=== PATIENT | male | born 1945 | race Caucasian/White ===

== ENCOUNTER 2021-08-02 12:36 | Outpatient (CLI) | payer MEDICARE, BC | END 2021-08-02 23:59 | disposition home or self-care (01) | LOC: LAB.N 12:36 | PROVIDERS: ATTEND Family Medicine | DX: R05 Cough (principal); Z20.822 Contact with and (suspected) exposure to COVID-19 ==

== ENCOUNTER 2022-10-04 22:03 | Emergency (ER) | payer MEDICARE, BC ==
--- NOTE | 2022-10-05 01:59 | ED Physician Documentation ---
History of Present Illness - Stated complaint Stated Complaint: SOA,FEVER - Chief complaint Chief Complaint: Resp - History obtained from History obtained from: Patient - History of Present Illness Timing: How many weeks ago (1) Pain level now: 0 Improved by: no ameliorating factors Worsened by: no exacerbating factors - Additonal information Additional information: c/o one week of rhinorrhea, post-nasal drip, nonproductive cough, sore throat, dyspnea, wheezing. Denies headache, denies fever at home (he is febrile in ED triage), denies myalgias. He has COPD but does not use oxygen at home. He has MDI but not nebulizer. Review of Systems Constitutional: reports: Fever (in ED at triage but was not aware of fevers at home), Myalgias, Fatigue. denies: Chills, Sweats Throat: reports: Sore throat Cardiac: reports: Reviewed and negative Respiratory: reports: Dyspnea, Cough, Wheezing GI: reports: Reviewed and negative : denies: Dysuria, Frequency PD PAST MEDICAL HISTORY - Past Medical History Cardiovascular: Hypertension, High cholesterol, Atrial fibrillation - Past Surgical History Past Surgical History: Yes Ortho: Shoulder arthroplasty - Present Medications Home Medications: Ambulatory Orders Medication Instructions Recorded Confirmed Aspirin 325 mg ORAL DAILY 05/21/16 05/21/16 Latanoprost 0.005% Ophth Drops 1 drop OP DAILY 05/21/16 05/21/16 [Xalatan Ophth Drops] Losartan [Cozaar] 100 mg ORAL DAILY 05/21/16 05/21/16 Potassium Chloride 20 meq ORAL BID 05/21/16 05/21/16 Simvastatin 20 mg ORAL DAILY 05/21/16 05/21/16 atenoloL [Atenolol] 100 mg ORAL DAILY 05/21/16 05/21/16 cephALEXin [Keflex] 500 mg PO Q6H #28 capsule 05/21/16 hydroCHLOROthiazide 25 mg ORAL DAILY 05/21/16 05/21/16 [Hydrochlorothiazide] Albuterol 2.5 mg INH Q4H PRN #30 ml 10/05/22 Nebulizer and Compressor 1 each MC Q4HR PRN #1 each 10/05/22 [Compressor Nebulizer System] predniSONE [Deltasone] 40 mg PO DAILY 4 Days #8 tablet 10/05/22 - Allergies Allergies/Adverse Reactions: Allergies Allergy/AdvReac Type Severity Reaction Status Date / Time ceftriaxone Allergy Severe Hives Verified 10/04/22 22:42 rifampin Allergy Severe Hives Verified 10/04/22 22:42 - Social History Does the pt smoke?: No Smoking Status: Never smoker Does the pt drink ETOH?: Yes Does the pt have substance abuse?: No - Immunizations Immunizations are current?: Yes PD ED PE NORMAL - Vitals Vital signs reviewed: Yes - General General: Alert and oriented X 3, No acute distress, Well developed/nourished - HEENT HEENT: Pharynx benign - Neck Neck: Supple, no meningeal sign - Cardiac Cardiac: RRR, No murmur - Respiratory Respiratory: No respiratory distress - Abdomen Abdomen: Soft, Non tender PD ED PE EXPANDED - Respiratory Respiratory: Wheezing (bilateral expiratory wheezing), Decreased breath sounds Results - Vitals Vitals: Oxygen O2 Source Room air - Labs Labs: Laboratory Tests 10/05/22 01:58 Nasal Adenovirus (PCR) NOT DETECTED Nasal B. parapertussis DNA (PCR) NOT DETECTED Nasal Coronavir 229E PCR NOT DETECTED Nasal Coronavir HKU1 PCR NOT DETECTED Nasal Coronavir NL63 PCR NOT DETECTED Nasal Coronavir OC43 PCR NOT DETECTED Nasal Enterovir/Rhinovir PCR NOT DETECTED Nasal Influenza B PCR NOT DETECTED Nasal Influenza A PCR NOT DETECTED Nasal Parainfluen 1 PCR NOT DETECTED Nasal Parainfluen 2 PCR NOT DETECTED Nasal Parainfluen 3 PCR NOT DETECTED Nasal Parainfluen 4 PCR NOT DETECTED Nasal RSV (PCR) DETECTED A Nasal B.pertussis DNA PCR NOT DETECTED Nasal C.pneumoniae (PCR) NOT DETECTED Kiran Human Metapneumo PCR NOT DETECTED Nasal M.pneumoniae (PCR) NOT DETECTED Nasal SARS-CoV-2 (PCR) NOT DETECTED - Rads (name of study) chest xray Radiology: Prelim report reviewed, See rad report PD MEDICAL DECISION MAKING - ED course Complexity details: reviewed results, re-evaluated patient, considered differential, d/w patient ED course: no concerning findings on CXR. He is given acetaminophen for 38.1 temperature (subsequently defervesces), and prednisone and duoneb for URI and COPD exacerbation symptoms. He reports feeling much better after the duoneb, and reexam of lungs reveals good air movement, end-expiratory wheezing bilaterally. Respiratory PCR panel is positive for RSV, negative for other viruses tested (such as COVID and influenza). Results d/w patient, return precautions reviewed. He is prescribed four more days of QD prednisone as well as rx for nebulizer with albuterol for neb Departure - Departure Disposition: 01 Home, Self Care Clinical Impression: RSV bronchitis, COPD exacerbation Condition: Good Instructions: ED RSV Bronchiolitis, ED Upper Resp Infec No Abx Tx, ED COPD Flare Follow-Up: GIA JACOBSEN MD [Primary Care Provider] - Prescriptions: Nebulizer and Compressor [Compressor Nebulizer System] 1 each MC Q4HR PRN #1 each PRN Reason: Dyspnea Albuterol 2.5 mg INH Q4H PRN #30 ml PRN Reason: Wheezing predniSONE [Deltasone] 40 mg PO DAILY 4 Days #8 tablet Comments: Your nasal swab tested positive for RSV, negative for the other viruses tested (including influenza, COVID). RSV is a common virus during cold/flu season, typically affects young children and infants. Most adults who catch RSV have mild cough/cold symptoms, although with your COPD you might have more pronounced symptoms than typical for most adults. There is no targeted treatment for RSV (such as an antibiotic or anti-viral medication). Prescriptions for prednisone (steroid) and a nebulizer with albuterol have been electronically submitted to [facility] pharmacy in [place] Discharge Date/Time: 10/05/22 05:04
[2022-10-05] MEDS ORDERED: predniSONE 20 MG TABLET PO STA (02:18)
[2022-10-05] MEDS ORDERED: IPRATROPIUM/ALBUTEROL 3 ML NEB INH STA (02:18)
[2022-10-05] MEDS ORDERED: ACETAMINOPHEN 325 MG TABLET PO STA (02:19)
[2022-10-05 02:56] LABS: B. PARAPERTUSSIS- RESP PCR PAN NOT DETECTED; B. PERTUSSIS- RESP PCR PANEL NOT DETECTED; C. PNEUMONIAE- RESP PCR PANEL NOT DETECTED; CORONAVIRUS 229E-RESP PCR NOT DETECTED; CORONAVIRUS HKU1-RESP PCR NOT DETECTED; CORONAVIRUS NL63-RESP PCR NOT DETECTED; CORONAVIRUS OC43-RESP PCR NOT DETECTED; HUMAN METAPNEUMOVIRUS NOT DETECTED; INFLUENZA A- RESP PCR PANEL NOT DETECTED; INFLUENZA B - RESP PCR PANEL NOT DETECTED; M. PNEUMONIAE- RESP PCR PANEL NOT DETECTED; PARAINFLUENZA VIRUS 1 NOT DETECTED; PARAINFLUENZA VIRUS 2 NOT DETECTED; PARAINFLUENZA VIRUS 3 NOT DETECTED; PARAINFLUENZA VIRUS 4 NOT DETECTED; RHINOVIRUS/ENTEROVIRUS NOT DETECTED; RSV- RESP PCR PANEL DETECTED; SARS-CoV-2 -RESP PCR PANEL NOT DETECTED
[2022-10-05 05:04] VITALS: BP 126/70
--- NOTE | 2022-10-05 09:28 | XRAY Report ---
PROCEDURE: Chest 2 View X-Ray INDICATIONS: cough, fever TECHNIQUE: 2 views of the chest were acquired. COMPARISON: None FINDINGS: Surgical changes and devices: Bilateral shoulder arthroplasty hardware is partially seen. Lungs and pleura: No pleural effusions or pneumothorax. No focal infiltrates are seen. Minimal bro nchial wall thickening is seen. Mediastinum: Mediastinal contours are normal. Heart size is normal. Bones and chest wall: No suspicious bony abnormalities. Age-appropriate degenerative changes are see n. Soft tissues appear unremarkable. IMPRESSION: No focal infiltrates are seen. Minimal bronchial wall thickening is seen. Please consider a viral process. Postoperative and degenerative changes are seen. Note: No significant discrepancy from the preliminary report. Reviewed by: Karthik Moon MD on 10/05/2022 8:[address] [facility] Approved by: Karthik Moon MD on 10/05/2022 8:[address] [facility] Station ID: [id number]
== END 2022-10-05 05:04 | disposition home or self-care (01) ==
LOC: ED 22:03
DX: J20.5 Acute bronchitis due to respiratory syncytial virus (principal); J44.1 Chronic obstructive pulmonary disease with (acute) exacerbation; Z20.822 Contact with and (suspected) exposure to COVID-19
CPT/HCPCS: 71046; 87633; 94640; 99283; A9270; J7512

== ENCOUNTER 2024-06-08 15:01 | Emergency (ER) | payer MEDICARE, BC ==
[2024-06-08 15:12] VITALS: O2SAT 100
--- NOTE | 2024-06-08 15:55 | ED Physician Documentation ---
PD HPI MALE - Stated complaint Stated Complaint: KIRKPATRICK CATH - Chief complaint Chief Complaint: General - Additional information Additional information: Dm 78-year-old gentleman with history of hypertension A-fib and chronic kidney disease. Was being worked up by Riddhi Dee from nephrology had an ultrasound which showed he had chronic obstructive uropathy affecting his kidneys. She asked him to come to the ED to have a Kirkpatrick placed. He has been urinating frequent small amounts for the past 6 or 7 years. No acute change in his symptoms. Review of Systems Constitutional: denies: Fever, Chills PD PAST MEDICAL HISTORY - Past Medical History Past Medical History: Yes Cardiovascular: Hypertension, High cholesterol, Atrial fibrillation Respiratory: Asthma - Past Surgical History Past Surgical History: Yes Ortho: Shoulder arthroplasty - Present Medications Home Medications: Ambulatory Orders Medication Instructions Recorded Confirmed Aspirin 325 mg ORAL DAILY 05/21/16 05/21/16 Latanoprost 0.005% Ophth Drops 1 drop OP DAILY 05/21/16 05/21/16 [Xalatan Ophth Drops] Losartan [Cozaar] 100 mg ORAL DAILY 05/21/16 05/21/16 Potassium Chloride 20 meq ORAL BID 05/21/16 05/21/16 Simvastatin 20 mg ORAL DAILY 05/21/16 05/21/16 atenoloL [Atenolol] 100 mg ORAL DAILY 05/21/16 05/21/16 cephALEXin [Keflex] 500 mg PO Q6H #28 capsule 05/21/16 hydroCHLOROthiazide 25 mg ORAL DAILY 05/21/16 05/21/16 [Hydrochlorothiazide] Albuterol 2.5 mg INH Q4H PRN #30 ml 10/05/22 Nebulizer and Compressor 1 each MC Q4HR PRN #1 each 10/05/22 [Compressor Nebulizer System] predniSONE [Deltasone] 40 mg PO DAILY 4 Days #8 tablet 10/05/22 - Allergies Allergies/Adverse Reactions: Allergies Allergy/AdvReac Type Severity Reaction Status Date / Time ceftriaxone Allergy Severe Hives Verified 06/08/24 15:04 rifampin Allergy Severe Hives Verified 06/08/24 15:04 - Social History Does the pt smoke?: No Smoking Status: Never smoker Does the pt drink ETOH?: Yes Does the pt have substance abuse?: No - Immunizations Immunizations are current?: Yes - POLST Patient has POLST: No PD ED PE NORMAL - General General: Alert and oriented X 3, No acute distress - Neck Neck: Supple, no meningeal sign - Cardiac Cardiac: RRR - Respiratory Respiratory: No respiratory distress - Abdomen Abdomen: Normal bowel sounds, Soft - Extremities Extremities: No edema Results - Vitals Vitals: Vital Signs - 24 hr 06/08/24 15:04 Temperature 36.5 C Heart Rate 80 Respiratory 16 Rate Blood Pressure 160/86 H O2 Saturation 100 Oxygen O2 Source Room air PD Medical Decision Making - ED course ED course: Kirkpatrick placed per nursing. Will be discharged home with leg bag and regular Kirkpatrick bag. Discussed Kirkpatrick care instructions. Will follow-up with Dr. Dee this week. Departure - Departure Disposition: 01 Home, Self Care Clinical Impression: Urinary retention Instructions: ED Catheter Care Kirkpatrick Forms: PCP List
[2024-06-08] MEDS: LIDOCAINE 2% URO-JET 5 ML SYRINGE UR STA (16:22)
[2024-06-08 17:39] VITALS: BP 126/86
== END 2024-06-08 17:39 | disposition home or self-care (01) ==
LOC: ED 15:01
DX: R33.9 Retention of urine, unspecified (principal); I12.9 Hypertensive chronic kidney disease with stage 1 through stage 4 chronic kidney disease, or unspecified chronic kidney disease; N18.9 Chronic kidney disease, unspecified; E78.00 Pure hypercholesterolemia, unspecified; I48.91 Unspecified atrial fibrillation; J45.909 Unspecified asthma, uncomplicated; Z79.82 Long term (current) use of aspirin; Z79.899 Other long term (current) drug therapy
CPT/HCPCS: 51702; 99282; 99283